=== PATIENT | female | born 1980 ===

== ENCOUNTER 2019-03-30 01:37 | Outpatient (CLI) | payer SELFPAY ==
[2019-03-30 10:45] LABS: HEMOGLOBIN A1C 4.3 % (4.5-6.2)
[2019-03-30 11:00] LABS: CHOL/HDL RATIO 1.94 (0.00-4.99)
== END 2019-03-30 23:59 | disposition home or self-care (01) ==
LOC: HW HEART 01:37
DX: Z13.6 Encounter for screening for cardiovascular disorders (principal)
CPT/HCPCS: 36415